=== PATIENT | female | born 1945 | race Caucasian/White ===

== ENCOUNTER 2019-04-08 12:58 | Outpatient (CLI) | payer MEDICARE, SELFPAY ==
[2019-04-08 14:23] LABS: Free T4 Free Thyroxine 1.31 ng/mL (0.78-2.19)
[2019-04-08 15:10] LABS: Thyroid Stimulating Hormone 0.254 uIU/mL (0.465-4.680)
[2019-04-11 07:21] LABS: Triiodothyronine T3 Free 3.5 pg/mL (2.3-4.2)
== END 2019-04-08 12:59 | disposition home or self-care (01) ==
LOC: ANHWCLAB 13:00
PROVIDERS: PCP Internal Medicine; Visit Provider Internal Medicine Endocrinology, Diabetes & Metabolism
DX: E05.90 Thyrotoxicosis, unspecified without thyrotoxic crisis or storm (principal); E04.1 Nontoxic single thyroid nodule; E04.9 Nontoxic goiter, unspecified
CPT/HCPCS: 36415; 84439; 84443; 84481

== ENCOUNTER 2019-05-18 09:55 | Outpatient (CLI) | payer MEDICARE, SELFPAY ==
--- NOTE | ~2019-05-18 | US_ITS ---
EXAMINATION: US thyroid DATE: 05/18/2019 11:14 INDICATION: Nontoxic single thyroid nodule TECHNIQUE: Multiple ultrasound images of the thyroid were obtained. COMPARISON: None. FINDINGS: The right thyroid lobe measures 4.6 x 2.1 x 2.5 cm. The left thyroid lobe measures 6.3 x 3.0 x 4.9 c m. There are several bilateral thyroid nodules. The largest on the left is a wider than tall solid 4 .9 x 4.1 x 3.2 cm heterogeneously isoechoic solid nodule with smooth margins (TI-RADS 4, moderately s uspicious , FNA if >=1.5 cm, annual followup is >1 cm). Along the medial margin of this larger nodule is a second smaller 12 x 9 x 10 mm well-defined solid hypoechoic nodule, also TI-RADS 4. The largest in the right thyroid is a solid hypoechoic well-defined wider than tall TI-RADS 4 nodule measuring 1 .6 x 1.2 x 1.4 cm. There are a few additional smaller solid right thyroid nodules, one with coarse sh adowing calcification, all TI-RADS 4. IMPRESSION: 1. Multiple bilateral TI-RADS 4 thyroid nodules. Recommend ultrasound-guided biopsy of the largest 4. 9 cm left thyroid nodule and consider biopsy for the next largest 1.6 cm right thyroid nodule. Reviewed, dictated and finalized at location A. IMPRESSION: 1. Multiple bilateral TI-RADS 4 thyroid nodules. Recommend ultrasound-guided bi opsy of the largest 4.9 cm left thyroid nodule and consider biopsy for the next largest 1.6 cm right thyroid nodule.
--- NOTE | ~2019-05-18 | DEXA_ITS ---
Bone Density Report Name: Cris Calabrese Age: 74 Sex: Female Ethnicity: White Date of : 1945 Indication: postmenopausal; height loss; prior fracture; hysterectomy; Referring Provider: Sheila Abdalla Study: Bone densitometry was performed. Exam Date: May 18, 2019 Accession number: [id number] Bone Density: Region BMD T-score Z-score Classification AP Spine (L1-L4) 0.820 -2.1 0.3 Osteopenia Femoral Neck (Left) 0.681 -1.5 0.5 Osteopenia Total Hip (Left) 0.789 -1.3 0.5 Osteopenia World Health Organization criteria for BMD impression classify patients as: Normal (T-score at or above -1.0), Osteopenia (T-score between -1.0 and -2.5), or Osteoporosis (T-score at or below -2.5). 10-year Fracture Risk(1): Major Osteoporotic Fracture 17% Hip Fracture 3.0% Reported Risk Factors: [place] (), Neck BMD=0.681, BMI=26.6, previous fracture (1) FRAX(R) Version 3.08. Fracture probability calculated for an untreated patient. Fracture probability may be lower if the patient has received treatment. Clinical Information Provided by Patient: Has had a low trauma fracture Has the following medical conditions: Hysterectomy Patient maximum height was 70 Menopause Age: 44 No regular weight bearing exercise Onset of menses at age 12 Number of children 4 Impression: The patient has low bone mass, based on the Total Spine T-score. The patient has an estimated ten-year risk of hip fracture of 3% and an estimated ten-year risk of major fracture of 17%, based on the WHO FRAX algorithm. The patient has risk factors, including: previous fracture. Discussion: BONE DENSITY IS LOW AT ONE OR MORE SKELETAL SITES. THE PATIENT'S BMD AND CLINICAL RISK FACTORS CONTRIBUTE TO THIS PATIENT'S INCREASED RISK OF FRACTURE. This patient's lowest T-score is low at one or more skeletal sites. It meets the World Health Organization's (WHO) criteria for ?low bone mass? (T-score between -1.0 and -2.5). The patient's 10-year risk of hip fracture as calculated by FRAX exceeds the threshold where pharmacological therapy is recommended by the National Osteoporosis Foundation (NOF). However, all treatment decisions require clinical judgment and consideration of individual patient factors, including patient preferences, comorbidities, previous drug use, risk factors not captured in the FRAX model (e.g., frailty, falls, vitamin D deficiency, increased bone turnover, interval significant decline in bone density) and possible under or overestimation of fracture risk by FRAX. The patient should follow a healthful lifestyle (good nutrition with adequate calcium and vitamin D, and appropriate weight-bearing exercise). Follow-Up: Consider a repeat BMD and Vertebral Fracture Assessment (VFA) exam in 2 years or sooner if medically necessary, to reassess this patient's status. Re
== END 2019-05-18 09:56 | disposition home or self-care (01) ==
LOC: ANHIMG 09:56
PROVIDERS: PCP Internal Medicine; Visit Provider Internal Medicine Endocrinology, Diabetes & Metabolism
DX: E04.2 Nontoxic multinodular goiter (principal); Z78.0 Asymptomatic menopausal state; E05.90 Thyrotoxicosis, unspecified without thyrotoxic crisis or storm; M85.89 Other specified disorders of bone density and structure, multiple sites
CPT/HCPCS: 76536; 77080

== ENCOUNTER 2019-10-18 14:18 | Outpatient (CLI) | payer MEDICARE, SELFPAY ==
--- NOTE | ~2019-10-18 | CT_ITS ---
EXAMINATION: CT abdomen pelvis wo/w con DATE: 10/18/2019 15:17 INDICATION: Disorder of adrenal gland TECHNIQUE: Computed tomography (CT) of the abdomen and pelvis was performed without and with 100 mL O mnipaque-350 intravenous contrast utilizing a standard adrenal protocol. Automated exposure control a nd iterative reconstruction technique were employed. The dose-length product was 871.07 mGy-cm. COMPARISON: None FINDINGS: Mild discoid atelectasis in the lingula and bilateral lower lobes. Heart size is normal. No pericardi al or pleural effusion. Moderate-sized sliding-type hiatal hernia. Liver, gallbladder, spleen, pancre as and bilateral kidneys are normal. Bilateral adrenal adenomas measuring 1.6 x 1.6 cm on the right and 1.7 x 1.3 cm on the left. Both dem onstrate diagnostic low-attenuation measuring 2 on the right and -6 on the left. Attenuation values i ncreased to 97 and 63 respectively on the postcontrast images decreasing to 23 and 9 respectively on the delayed images yielding absolute washout values of 70% on the right and 86% on the left again naga gnostic of adenomas. Moderate amount of stool throughout the colon. Small bowel and appendix are normal. Bladder is normal . The uterus is not identified and has likely been surgically resected. No free intraperitoneal gas o r fluid. No pathologically enlarged abdominal or pelvic lymphadenopathy. Severe lumbar spondylosis. A few small bone islands in the left femoral head and left pelvis. IMPRESSION: 1. Bilateral adrenal adenomas. 2. Moderate-sized sliding-type hiatal hernia. Reviewed, dictated and finalized at location A.
[2019-10-18 15:00] LABS: Estimated Glomerular Filt Rate > 60
== END 2019-10-18 14:19 | disposition home or self-care (01) ==
PROVIDERS: PCP Internal Medicine; Visit Provider Internal Medicine Endocrinology, Diabetes & Metabolism
DX: E27.8 Other specified disorders of adrenal gland (principal); K44.9 Diaphragmatic hernia without obstruction or gangrene; D35.01 Benign neoplasm of right adrenal gland; D35.02 Benign neoplasm of left adrenal gland
CPT/HCPCS: 74178; Q9967

== ENCOUNTER 2020-01-21 01:30 | Outpatient (CLI) | payer MEDICARE, SELFPAY ==
[2020-01-21 18:32] LABS: SARS-CoV-2 RNA PCR Negative
== END 2020-01-21 01:31 | disposition home or self-care (01) ==
LOC: ANHCOVIDDT 01:30
PROVIDERS: PCP Internal Medicine; Visit Provider Internal Medicine Gastroenterology
DX: Z01.812 Encounter for preprocedural laboratory examination (principal); Z20.828 Contact with and (suspected) exposure to other viral communicable diseases
CPT/HCPCS: 87635; C9803; U0003

== ENCOUNTER 2020-01-25 02:50 | Day surgery (SDC) | payer MEDICARE, SELFPAY ==
[2020-01-16 13:58] VITALS: BMI 23.7
[2020-01-25 09:48] VITALS: BP 140/73; PULSE 68; RESP 18; TEMP 36.6
[2020-01-25] MEDS: LACTATED RINGERS 1,000 ML 150 ML IV CONT (10:06)
--- NOTE | 2020-01-25 10:20 | WPDANESEPPF ---
Anes - Initial Pre Proc Eval Procedure: Operation Date: 01/25/20 11:30 Proposed Procedures p Esophagogastroduodenoscopy - Ricky Andrea MD Date/Time: 01/25/20 10:20 Surgeon: Ricky Andrea MD Pre Op Diagnosis: Esophageal Obstruction/Dysphagia/GERD Patient Data Age: 74 Gender: F Height: 5 ft 10 in Weight: 78.4 kg Last Vital Signs Temp 97.9 F 01/25/20 09:48 Pulse 68 01/25/20 09:48 Resp 18 01/25/20 09:48 BP 140/73 01/25/20 09:48 Allergies Allergy/AdvReac Type Severity Reaction Status Date / Time No Known Allergies Allergy Unverified 01/25/20 09:47 Home Medications Medication Instructions Recorded Confirmed Type celecoxib 50 mg capsule 50 mg PO DAILY 03/31/19 01/25/20 History methimazole 5 mg tablet 5 mg PO DAILY #90 tablet 10/26/19 01/25/20 Rx clonazepam 1 mg tablet 1 mg PO BID PRN 30 Days #60 tablet 12/30/19 01/25/20 Rx pantoprazole [Protonix] 40 mg PO QAM 01/16/20 01/25/20 History Patient hx anesthesia problems: none Family hx anesthesia problems: none PMFSH Past Medical History Medical History (Updated 12/29/19 @ 10:05 by Ricky Andrea MD) Dysphagia Family history of colon cancer Schatzki's ring of distal esophagus Shingles Surgical History Surgical History H/O lateral meniscus repair of left knee H/O tubal ligation Family History Family History Other Diabetes mellitus Family history of Alzheimer's disease Family history of coronary artery disease Social History Social History Smoking status: Never smoker Second hand tobacco smoke exposure: Yes Alcohol intake: current Living arrangements: with family Gender identity (if verbalized by the patient): Female Sexual Orientation (if Verbalized by the Patient): Straight or Heterosexual Spiritual care concerns: No Anes - Eval Final PreProcedure Day of Procedure 01/25/20 10:20 Patient weight: normal Heart: regular rate and rhythm Lungs: clear to auscultation Airway: Mallampati scale class II Neurological: alert and oriented Last oral intake: >/= 8 hours ASA classification: II Emergent: no Anesthetic plan: proceed Anesthesia type and monitoring: general GIVS and standard monitoring Informed Consent: The patient's anesthetic plan and its attendant risks and benefits were discussed with the patient/family/POA. Questions were solicited and answers provided to the satisfaction of the patient/family/POA.
--- NOTE | 2020-01-25 10:41 | WPDHPUPDATE1 ---
History and Physical Update Update Date/Time: 01/25/20 10:41 History and Physical has been reviewed, including an updated exam of the patient. There are NO changes in the patient's condition. Risks, benefits, and alternatives have been discussed and questions answered. Patient agrees to proceed with procedure.
[2020-01-25 11:03] VITALS: BP 95/39; PULSE 58; RESP 17; O2SAT 100
[2020-01-25 11:13] VITALS: BP 98/41; PULSE 57; RESP 16; O2SAT 100
[2020-01-25 11:23] VITALS: BP 122/53; PULSE 55; RESP 15; O2SAT 100
== END 2020-01-25 11:55 | disposition home or self-care (01) ==
PROVIDERS: PCP Internal Medicine; Visit Provider Internal Medicine Gastroenterology
PROC: 0DJ08ZZ Inspection of Upper Intestinal Tract, Via Natural or Artificial Opening Endoscopic (ICD-10-PCS; CPT 43235; principal; 2020-01-25 11:30)
DX: K22.2 Esophageal obstruction (principal); K44.9 Diaphragmatic hernia without obstruction or gangrene; K31.7 Polyp of stomach and duodenum; K29.50 Unspecified chronic gastritis without bleeding; Z80.0 Family history of malignant neoplasm of digestive organs
CPT/HCPCS: 43249; 43239; 88305; J2704; J7120

== ENCOUNTER 2020-06-06 15:01 | Outpatient (CLI) | payer MEDICARE, SELFPAY ==
[2020-06-06 16:54] LABS: Free T4 Free Thyroxine 0.98 ng/mL (0.78-2.19)
[2020-06-07 18:20] LABS: Thyroid Stimulating Hormone 0.899 uIU/mL (0.465-4.680)
== END 2020-06-06 15:02 | disposition home or self-care (01) ==
LOC: ANHWCLAB 15:04
PROVIDERS: PCP Internal Medicine; Referring Provider Internal Medicine Endocrinology, Diabetes & Metabolism; Visit Provider Internal Medicine Endocrinology, Diabetes & Metabolism
DX: E04.2 Nontoxic multinodular goiter (principal); M85.80 Other specified disorders of bone density and structure, unspecified site; E27.8 Other specified disorders of adrenal gland; E05.90 Thyrotoxicosis, unspecified without thyrotoxic crisis or storm
CPT/HCPCS: 36415; 84439; 84443

== ENCOUNTER 2020-07-13 15:51 | Outpatient (CLI) | payer MEDICARE, SELFPAY ==
--- NOTE | ~2020-07-13 | XR_ITS ---
EXAMINATION: XR_[id number]_CR INDICATION: Right rib pain, pleurodynia TECHNIQUE: A frontal view of the chest and 3 views of the right ribs were obtained. COMPARISON: None. FINDINGS: There is subsegmental atelectasis in the lower lobes. No focal airspace opacities are ident ified. There is no pleural effusion or pneumothorax. The heart size is normal. There is a moderate-si zed hiatal hernia. IMPRESSION: 1. Mild atelectasis of the lung bases without evidence of displaced rib fracture. Reviewed, dictated and finalized at location A. IMPRESSION: 1. Mild atelectasis of the lung bases without evidence of displaced rib fractur e.
--- NOTE | ~2020-07-13 | XR_ITS ---
EXAMINATION: XR hip RT 2V w AP pelvis INDICATION: Right hip pain TECHNIQUE: AP view of the pelvis and two views of the right hip are obtained. COMPARISON: CT, 10/18/2019 FINDINGS: Bone alignment is normal. There is no fracture. There is mild osteoarthritis of the hips. T he soft tissues are unremarkable. IMPRESSION: 1. Mild osteoarthritis of the hips. Reviewed, dictated and finalized at location A.
--- NOTE | ~2020-07-13 | XR_ITS ---
EXAMINATION:XR_[id number]_CR DATE: 07/13/2020 16:33 INDICATION: Neck pain TECHNIQUE: AP, lateral, and odontoid views of the cervical spine are provided. COMPARISON: None FINDINGS: There are 2 mm of retrolisthesis of C4 on C5 and 2 mm of anterolisthesis of C5 on C6. The o dontoid is intact. No fracture is identified. Vertebral body heights are normal. There is mild loss o f intervertebral disc space height at C4-5 and C5-6. There is moderate multilevel facet osteoarthriti s. The shoulders are slightly rotated to the right. IMPRESSION: 1. Mild cervical spondylosis without acute findings. Reviewed, dictated and finalized at location A.
== END 2020-07-13 15:52 | disposition home or self-care (01) ==
LOC: ANHIMG 15:53
PROVIDERS: PCP Nurse Practitioner Family; Visit Provider Nurse Practitioner Family
DX: M54.2 Cervicalgia (principal); R07.81 Pleurodynia; M25.551 Pain in right hip; J98.11 Atelectasis; M16.0 Bilateral primary osteoarthritis of hip; M47.812 Spondylosis without myelopathy or radiculopathy, cervical region
CPT/HCPCS: 71101; 72040; 73502

== ENCOUNTER 2021-03-19 14:32 | Outpatient (CLI) | payer MEDICARE, SELFPAY ==
[2021-03-19 17:27] LABS: Vitamin D 25 Hydroxy 40.5 ng/mL
[2021-03-19 17:28] LABS: Free T4 Free Thyroxine 1.08 ng/mL (0.78-2.19)
[2021-03-22 05:37] LABS: Triiodothyronine T3 Free 2.8 pg/mL (2.3-4.2)
== END 2021-03-19 14:33 | disposition home or self-care (01) ==
PROVIDERS: PCP Nurse Practitioner Family; Visit Provider Internal Medicine Endocrinology, Diabetes & Metabolism
DX: E27.8 Other specified disorders of adrenal gland (principal); E04.2 Nontoxic multinodular goiter; M85.88 Other specified disorders of bone density and structure, other site
CPT/HCPCS: 36415; 82306; 84439; 84443; 84481

== ENCOUNTER 2021-04-04 12:33 | Outpatient (CLI) | payer MEDICARE, SELFPAY ==
--- NOTE | ~2021-04-04 | MM_ITS ---
EXAMINATION: MM screening sade BI w reina HISTORY: Screening mammogram TECHNIQUE: Craniocaudal and mediolateral oblique 3-D tomosynthesis images were obtained and synthetic 2-D images were generated. CAD analysis was submitted and interpreted. COMPARISON: No prior mammogram is available for comparison at this institution. BREAST PARENCHYMAL COMPOSITION: There are scattered areas of fibroglandular density. FINDINGS: RIGHT BREAST: An asymmetry is present in the middle third of the central breast on the craniocaudal v iew. LEFT BREAST: There are grouped calcifications in the middle third of the upper outer quadrant of the breast. IMPRESSION: 1. Bilateral breast findings as described above which may represent the patient's baseline however no comparison is currently available. 2. Comparison with prior mammograms is necessary. BI-RADS Category 0: Incomplete: Needs comparison with prior mammograms. Reviewed, dictated and finalized at location A. TERM CARE PHLEBOTOMIST IMPRESSION: 1. Bilateral breast findings as described above which may represent the patient 's baseline however no comparison is currently available. 2. Comparison with prior mammograms is necessary. BI-RADS Category 0: Incomplete: Needs comparison with prior mammograms.
== END 2021-04-04 12:34 | disposition home or self-care (01) ==
PROVIDERS: PCP Nurse Practitioner Family; Visit Provider Nurse Practitioner Family
DX: Z12.31 Encounter for screening mammogram for malignant neoplasm of breast (principal); R92.8 Other abnormal and inconclusive findings on diagnostic imaging of breast
CPT/HCPCS: 77063; 77067

== ENCOUNTER 2021-05-01 13:10 | Emergency (ER) | payer MEDICARE, SELFPAY ==
--- NOTE | 2021-05-01 13:22 | ED.GENADULT ---
HPI - General Adult General Chief complaint: Recheck/Abnormal Lab/Rx Stated complaint: elevated blood pressure Time Seen by Provider: 05/01/21 13:20 Mode of arrival: ambulatory Limitations: no limitations History of Present Illness HPI narrative: 76-year-old female presents with concern for elevated blood pressure. She reports 2 nights ago her son took her blood pressure at home and the reading was high, she is not sure what the number was. She reports yesterday while at radiation she had another high blood pressure reading. She denies history of hypertension. She reports slightly she has been very stressed. She also reports she has been doing radiation for skin cancer for last 2 months. She denies headache, weakness in any extremity, numbness in the extremity. She denies any new medications. MD complaint: Elevated blood pressure Related Data Home Medications Medication Instructions Recorded Confirmed duloxetine 30 mg PO DAILY 05/01/21 05/01/21 pantoprazole 40 mg PO DAILY 05/01/21 05/01/21 Allergies Allergy/AdvReac Type Severity Reaction Status Date / Time No Known Allergies Allergy Verified 05/01/21 13:31 Review of Systems Review of Systems: CONSTITUTIONAL: Denies malaise, chills, sweats, or fever. EYES: Denies visual changes, redness, or discharge. ENT: Denies rhinorrhea, congestion, sinus pain, otalgia or sore throat. CARDIOVASCULAR: Denies chest pain, palpitations, or edema. RESPIRATORY: Denies cough or dyspnea. GASTROINTESTINAL: Denies abdominal pain, nausea, vomiting, diarrhea, bloody, or mucous stools. GENITOURINARY: Denies dysuria or hematuria. SKIN: Denies rash or itching. MUSCULOSKELETAL: Denies back pain, joint pain, or myalgia. NEUROLOGIC: Denies numbness, weakness, or headache. PSYCHIATRIC: Denies anxiety or depression. All systems reviewed & are unremarkable except as noted in HPI and below [facility] Past Medical History Medical History (Updated 05/01/21 @ 13:49 by Kitty Quinones NP) Abnormal mammogram Actinic keratosis, hx of Acute right hip pain Anxiety Anxiety BMI 25.0-25.9,adult Breast cancer screening Cervicalgia Colon cancer screening Depression Dysphagia Family history of colon cancer brother, next colonoscopy 03/2022 Fatigue GERD (gastroesophageal reflux disease) Left knee pain Lesion of lip Lumbago Microscopic hematuria Rib pain on right side Schatzki's ring of distal esophagus Shingles Vitamin D deficiency Wellness examination Surgical History Surgical History H/O lateral meniscus repair of left knee H/O tubal ligation History of hysterectomy Hx of goiter removal Family History Family History Father Hypertension Heart disease Sibling Carcinoma of colon Lung cancer Other Diabetes mellitus Family history of Alzheimer's disease Family history of coronary artery disease Social History Social History Smoking status: Never smoker Second hand tobacco smoke exposure: Yes Alcohol intake: current Substance use: never Gender identity (if verbalized by the patient): Female Sexual Orientation (if Verbalized by the Patient): Straight or Heterosexual Spiritual care concerns: No Comments At time of signature, agree with nursing past medical, surgical, social and family history. There is no relevant family history pertinent to the presenting complaint Exam Narrative: GENERAL: Well-appearing, well-nourished, and in no acute distress. HEAD: Normocephalic, atraumatic. EYES: PERRLA, sclera clear, and EOMI. No nystagmus. ENT: Nares clear. Mucous membranes moist. NECK: Supple. No lymphadenopathy. No jugular venous distension, thyromegaly, or carotid bruits. Carotids were easily palpable bilaterally. CHEST: No respiratory distress. Clear to auscultation. No bony deformities, no as
[2021-05-01 13:24] VITALS: BP 167/78; PULSE 72; RESP 18; TEMP 37.1; O2SAT 100
== END 2021-05-01 13:52 | disposition home or self-care (01) ==
PROVIDERS: Emergency Provider Nurse Practitioner; PCP Family Medicine
DX: R03.0 Elevated blood-pressure reading, without diagnosis of hypertension (principal); K21.9 Gastro-esophageal reflux disease without esophagitis
CPT/HCPCS: 99211; G0463

== ENCOUNTER 2021-08-16 12:22 | Outpatient (CLI) | payer MEDICARE, SELFPAY ==
--- NOTE | ~2021-08-16 | MMUS_ITS ---
EXAMINATION: MM diagnostic sade BI w reina, US breast BI complete HISTORY: Right breast asymmetry in middle third of central breast on craniocaudal screening view of F ebruary 2021 and grouped calcifications in the middle third of the upper outer quadrant of the le ft breast on same date mammogram TECHNIQUE: Additional 3-D tomosynthesis images of both breasts were performed and synthetic 2-D image s were generated. Magnification views of left breast in ML, MLO and CC projections. CAD analysis was submitted and interpreted. High resolution bilateral complete breast ultrasound including all 4 quadr ants and subareolar areas was performed. COMPARISON: April 04, 2021 bilateral screening mammogram BREAST PARENCHYMAL COMPOSITION: The breasts are heterogeneously dense, which may obscure small masses . FINDINGS: MAMMOGRAPHIC FINDINGS: Right breast: No reproducible mass is evident. No architectural distortion is detected. The asymmetry reported in the middle third of the central breast on screening craniocaudal view of April 04 22 compresses out. Left breast: Multiple benign calcifications are noted. ULTRASOUND: No suspicious mass or shadowing or other significant sonographic finding of either breast is noted. IMPRESSION: 1. No mammographic evidence of malignancy 2. Routine annual mammographic screening is recommended BI-RADS Category 2: Benign finding(s). Reviewed, dictated and finalized at location A. IMPRESSION: 1. No mammographic evidence of malignancy 2. Routine annual mammographic screening is recommended BI-RADS Category 2: Benign finding(s).
[2021-08-16 16:36] LABS: Free T4 Free Thyroxine 1.18 ng/mL (0.78-2.19)
[2021-08-19 14:02] LABS: Triiodothyronine T3 Free 3.1 pg/mL (2.3-4.2)
== END 2021-08-16 12:23 | disposition home or self-care (01) ==
LOC: ANHIMG 12:24
PROVIDERS: Internal Medicine Endocrinology, Diabetes & Metabolism; PCP Nurse Practitioner Family; Visit Provider Nurse Practitioner Family
DX: E04.2 Nontoxic multinodular goiter (principal); E05.90 Thyrotoxicosis, unspecified without thyrotoxic crisis or storm; E27.8 Other specified disorders of adrenal gland; R92.8 Other abnormal and inconclusive findings on diagnostic imaging of breast
CPT/HCPCS: 36415; 76641; 77062; 77066; 84439; 84443; 84481; G0279

== ENCOUNTER 2022-07-11 11:06 | Observation (INO) | payer MEDICARE, SELFPAY ==
[2022-07-11] VITALS (15 sets, daily range): BP systolic 119–159; BP diastolic 48–75; PULSE 55–72; RESP 13–21; TEMP 36.2–36.4; O2SAT 96–100; BMI 20.8
--- NOTE | ~2022-07-11 | XR_ITS ---
EXAMINATION: XR chest 2V DATE: 07/11/2022 12:21 INDICATION: Weakness. TECHNIQUE: Frontal and lateral views of the chest were obtained. COMPARISON: Left wrist radiographs 05/19/2017, CT abdomen and pelvis 10/18/2019 FINDINGS: There is mild atelectasis in the lower lung zones. No pleural effusion or pneumothorax. The heart size is normal. There is a small hiatal hernia. There is mild chronic anterior wedging of mult iple midthoracic vertebral bodies. IMPRESSION: 1. Mild atelectasis in the lower lung zones. 2. Small hiatal hernia. Reviewed, dictated and finalized at location A.
--- NOTE | ~2022-07-11 | CT_ITS ---
EXAMINATION: CT brain wo con INDICATION: Increasing confusion COMPARISON: None TECHNIQUE: Standard unenhanced head CT. The dose-length product (DLP) was 681.00 mGy-cm. The mA was a djusted according to patient size. Iterative reconstruction technique was employed. FINDINGS: There is no acute intraparenchymal hemorrhage. No evidence of mass lesion. No evidence of a cute infarction. There is mild periventricular and subcortical hypodensity probably related to small vessel ischemic disease. There is mild prominence of the sulci and ventricles related to cerebral atr ophy. Intracranial calcified cerebral atherosclerosis is noted. There are no extra-axial collections. There is no mass effect or midline shift. Polyps or mucous retention cysts are noted in the left max illary sinus. The visualized sinuses and mastoid air cells are well aerated. IMPRESSION: 1. No acute intracranial abnormality. 2. Age related findings. Reviewed, dictated and finalized at location A.
--- NOTE | 2022-07-11 11:12 | ECG_ITS ---
Measurements Intervals [place] Rate: 63 P: 54 [place]: 193 QRS: -52 QRSD: 125 T: -10 QT: 410 QTc: 421 Interpretive Statements SINUS RHYTHM RIGHT BUNDLE BRANCH BLOCK LEFT ANTERIOR FASCICULAR BLOCK LEFT VENTRICULAR HYPERTROPHY ANTEROSEPTAL INFARCT, AGE INDETERMINATE BORDERLINE T WAVE ABNORMALITY- INFERIOR LEADS BASELINE ARTIFACT- I, II, III, AVR, AVL, AVF, V1-V3 ABNORMAL ECG NO PREVIOUS ECG AVAILABLE FOR COMPARISON Electronically Signed On 07-11-2022 11:51:21 CDT by Varinder Bloom D.O.
[2022-07-11 11:32] LABS: Basophils Percent Auto 0.3 % (0.2-1.2); Eosinophils Absolute Auto 0.1 K/mm3 (0-0.3); Eosinophils Percent Auto 1.5 % (0-4.4); Hematocrit 41.3 % (37.0-47.0); Hemoglobin 13.6 g/dL (12.0-15.0); Immature Granulocyte Absolute 0.06 K/mm3 (0.00-0.031); Immature Granulocyte Percent A 0.8 % (0-0.5); Lymphocytes Absolute Auto 1.24 K/mm3 (0.9-3.2); Lymphocytes Percent Auto 16.8 % (18.3-44.2); Mean Corpuscular HGB Conc 32.9 g/dl (32-36); Mean Corpuscular Hemoglobin 29.6 pg (26-34); Mean Corpuscular Volume 89.8 fl (80-100); Mean Platelet Volume 8.9 fl (7.4-10.4); Monocytes Absolute Auto 0.5 K/mm3 (0.1-0.6); Monocytes Percent Auto 6.4 % (2.6-8.5); Neutrophils Absolute Auto 5.5 K/mm3 (1.3-6.7); Neutrophils Percent Auto 74.2 % (45.5-73.1); Platelet Count Result 309 k/mm3 (150-375); Red Cell Distribution Width 13.4 % (11.5-14.5); White Blood Count 7.4 K/mm3 (4.5-10.0)
[2022-07-11 11:39] LABS: Alanine Aminotransferase 23 U/L (6-35); Albumin Level 4.4 g/dL (3.5-5.1); Alkaline Phosphatase 144 U/L (38-126); Anion Gap 9 mmol/L (8-16); Aspartate Amino Transferase 25 U/L (14-36); Bilirubin,Total 0.7 mg/dL (0.2-1.3); Blood Urea Nitrogen 19 mg/dL (7-17); Carbon Dioxide 33 mmol/L (22-30); Chloride 97 mmol/L (98-107); Estimated CRCL calculation 58 ml/min; Estimated Glomerular Filt Rate > 60; Glucose 113 mg/dL (65-110); Potassium 3.3 mmol/L (3.4-5.0); Sodium 139 mmol/L (137-145)
[2022-07-11 12:18] LABS: Appearance Urine Slightly Cloudy (Clear); Bilirubin Urine 1+ (Negative); Blood Urine Trace-intact (Negative); Color Urine Yellow (Yellow); Glucose Urine UA Negative (Negative); Ketones Urine Negative (Negative); Leukocyte Esterase Ur 3+ LEU/UL (Negative); Nitrate Urine Positive (Negative); Protein Urine 1+ mg/dL (Negative)
[2022-07-11 12:36] LABS: Bacteria Urine Rare /hpf; Need Manual Microscopic Reviewed; Squamous Epithelial Cell Urine Many /hpf (Few); WBC Urine >100 /hpf
[2022-07-11 12:40] LABS: Add Urine Microscopic? YES
--- NOTE | 2022-07-11 14:45 | ED.GENADULT ---
HPI - General Adult General Chief complaint: Weakness Stated complaint: UTI-abx not working Time Seen by Provider: 07/11/22 12:09 Source: patient Mode of arrival: EMS Limitations: no limitations History of Present Illness HPI narrative: 77-year-old with a history of anxiety, depression , hypertension, chronic fatigue was sent from retirement with complaints of marked weakness as per the retirement records and from the family patient was seen at [facility] few days ago was diagnosed with UTI. Patient presently has no fever, chest pain or shortness of breath here with complaints of marked weakness. Onset (ago): week(s) (1) Severity: moderate Relieving factors: none Exacerbating factors: none Associated symptoms: denies other symptoms Treatments prior to arrival: none Related Data Home Medications Medication Instructions Recorded Confirmed risperidone 0.25 mg tablet 0.25 mg PO QHS 06/09/22 06/19/22 ondansetron HCl 4 mg tablet 4 mg PO Q8H PRN 06/19/22 06/19/22 Allergies Allergy/AdvReac Type Severity Reaction Status Date / Time No Known Allergies Allergy Verified 07/11/22 11:06 Review of Systems Constitutional: Constitutional: Reports no additional constitutional complaints Eyes: Eyes: Reports no additional eye complaints ENT: Reports system reviewed and no additional complaints, except as documented Cardiovascular: Cardiovascular: Reports no additional cardiovascular complaints Respiratory: Respiratory: Reports no additional respiratory complaints Gastrointestinal: Gastrointestinal: Reports no additional gastrointestinal complaints Genitourinary: Genitourinary: Reports no additional female genitourinary complaints Musculoskeletal: Musculoskeletal: Reports no additional musculoskeletal complaints [facility] Past Medical History Medical History Abnormal mammogram Actinic keratosis, hx of Acute right hip pain Anxiety Anxiety BMI 25.0-25.9,adult Breast cancer screening Cervicalgia Colon cancer screening Constipation Depression Drooling Dysphagia Essential hypertension (~04/2021) Family history of colon cancer brother, next colonoscopy 03/2022 Fatigue GERD (gastroesophageal reflux disease) Left knee pain Lesion of lip Lumbago Microscopic hematuria Pubic ramus fracture Rib pain on right side Schatzki's ring of distal esophagus Shingles UTI (urinary tract infection) Vitamin D deficiency Wellness examination Surgical History Surgical History H/O lateral meniscus repair of left knee H/O tubal ligation History of hysterectomy Hx of goiter removal Family History Family History Father Hypertension Heart disease Sibling Carcinoma of colon Lung cancer Other Diabetes mellitus Family history of Alzheimer's disease Family history of coronary artery disease Social History Social History Smoking status: Never smoker Second hand tobacco smoke exposure: Yes Alcohol intake: former Substance use: never Lack of Transportation: No Lack of Food: Never True Current Housing: I Have Housing Concerned About Future Housing: No Difficulty Paying Gas/Electric Bills: No Difficulty Paying for Meds: No Currently Unemployed: No Education: Decline to Answer Difficulty w/ Childcare or Family Care: No Living arrangements: with family Gender identity (if verbalized by the patient): Female Sexual Orientation (if Verbalized by the Patient): Straight or Heterosexual Spiritual care concerns: No Exam Narrative: GENERAL: Thin and frail, and in no acute distress. HEAD: Normocephalic, atraumatic. EYES: PERRLA and EOMI.. NECK: Supple. CHEST: Clear to auscultation. No respiratory distress. HEART: Regular rate and rhythm. No murmur heard. Normal peripheral
--- NOTE | 2022-07-11 15:44 | PM.IMHP ---
H&P: HPI History of Present Illness Date/Time: 07/11/22 18:00 Chief Complaint: Weakness. Narrative: This is a 77-year-old female with dementia, anxiety, depression, hypertension, and GERD who presented to the emergency department via EMS from [facility] in [place] for evaluation of weakness. Patient provides the following history; her daughter provides additional information with the patient's permission. She was seen in the ED at [facility] in [place] 2 days ago on 07/09/2022 for evaluation of urinary frequency and follow smelling urine. After staff noticed foul-smelling urine and increasing urination. UA was suggestive of UTI and she was discharged home on cephalexin. The patient continues to feel weak and her daughter does not think she is getting any better with antibiotics. Staff at her facility also believe she seems a bit more confused than usual. She was thus brought back in for evaluation. In the ED: She was afebrile on arrival with stable vital signs. Pertinent labs include a WBC count of 7.4, hemoglobin 13.6, sodium 139, potassium 3.3, BUN 19, creatinine 0.70. UA was positive for nitrates, 3+ leukocyte esterase, 3 to 5 RBC, greater than 100 WBC, rare bacteria, many squamous epithelial cells, and 11 to 20 casts. [facility] Past Medical History Medical History (Updated 07/12/22 @ 00:27 by Liz Kahn PA-C) Anxiety Constipation Dementia Depression Essential hypertension Gastroesophageal reflux disease Osteopenia Pubic ramus fracture Schatzki's ring of distal esophagus Shingles Vitamin D deficiency Surgical History Surgical History (Updated 07/12/22 @ 00:20 by Liz Kahn PA-C) History of arthroplasty of right knee History of bladder suspension procedure History of hysterectomy History of lateral meniscus repair of left knee History of partial thyroidectomy Removal of goiter. History of tubal ligation Family History Family History Father Hypertension Heart disease Sibling Carcinoma of colon Lung cancer Other Diabetes mellitus Family history of Alzheimer's disease Family history of coronary artery disease Social History Social History (Updated 07/12/22 @ 00:21 by Liz Kahn PA-C) Social History: Surrogate medical decision maker: Brooklyn Marroquin, daughter. Code status: Full code. Smoking status: Never smoker Second hand tobacco smoke exposure: Yes Alcohol intake: unknown Substance use: unknown Substance use type: unknown Lack of Transportation: No Lack of Food: Never True Current Housing: I Have Housing Concerned About Future Housing: No Difficulty Paying Gas/Electric Bills: No Difficulty Paying for Meds: No Currently Unemployed: No Education: Decline to Answer Difficulty w/ Childcare or Family Care: No Additional living arrangements comments: [facility] in [place]. Additional occupation/education comments: Retired [employer]. Spiritual care concerns: No Meds Home Medications and Allergies Home Medications Medication Instructions Recorded Confirmed Type metoprolol succinate 50 mg 50 mg PO DAILY #45 tabs 06/09/22 07/11/22 Rx tablet,extended release 24 hr pantoprazole 40 mg tablet,delayed 40 mg PO QAM #90 tabs 06/09/22 07/11/22 Rx release risperidone 0.25 mg tablet 0.25 mg PO QHS 06/09/22 07/11/22 History duloxetine 60 mg capsule,delayed 60 mg PO DAILY #90 caps 06/19/22 07/11/22 Rx release (Cymbalta) ondansetron HCl 4 mg tablet 4 mg PO Q8H PRN Nausea 06/19/22 07/11/22 History sennosides 8.6 mg-docusate sodium 1 tab-cap PO BID #180 tabs 06/19/22 07/11/22 Rx 50 mg tablet (Senna Plus) acetaminophen 500 mg tablet 500 mg PO Q6H PRN pain #100 tabs 07/01/22 07/11/22 Rx Allergies Allergy/AdvReac Type Severity Reaction Status Date / Time No Known Allergies Allergy Verified 07/11/22 17:30 Vital Signs Vital Signs - 24 hr 07/11/22 11:08 07/11/22
[2022-07-11] MEDS: SODIUM CHLORIDE 0.9% IV 1,000 ML 125 ML IV CONT ×2 (16:42→18:07)
--- NOTE | 2022-07-11 17:30 | ADMGEN ---
This patient, Cris Calabrese, was admitted to Medical Room 253-01. Patient/family oriented to hospital policies and general routines including ID bracelet, bed and alarms, visiting hours, pain management, procedures, bathroom and other care routines, personal items, smoking policy, room service/diet, and visiting hours. Information on how to activate the Rapid Response Team has been discussed. Patient/Family are encouraged to report perceived risks to care and to ask questions if they do not understand what they are told or what they should do.
[2022-07-12] MEDS: POTASSIUM CHLORIDE 20 MEQ TABLET PO (00:55)
[2022-07-12] MEDS: risperiDONE 0.25 MG TABLET PO ×2 (00:55→20:43)
[2022-07-12 05:22] VITALS: BP 118/56; PULSE 70; RESP 16; TEMP 36.8; O2SAT 96
[2022-07-12 07:05] LABS: Anion Gap 4 mmol/L (8-16); Blood Urea Nitrogen 16 mg/dL (7-17); Calcium 8.3 mg/dL (8.4-10.2); Carbon Dioxide 31 mmol/L (22-30); Chloride 105 mmol/L (98-107); Estimated CRCL calculation 72 ml/min; Estimated Glomerular Filt Rate > 60; Glucose 95 mg/dL (65-110); Magnesium 1.8 mg/dL (1.6-2.3); Potassium 3.4 mmol/L (3.4-5.0); Sodium 140 mmol/L (137-145)
[2022-07-12 07:15] LABS: Basophils Percent Auto 0.8 % (0.2-1.2); Eosinophils Absolute Auto 0.2 K/mm3 (0-0.3); Eosinophils Percent Auto 3.9 % (0-4.4); Hematocrit 34.7 % (37.0-47.0); Hemoglobin 11.5 g/dL (12.0-15.0); Immature Granulocyte Absolute 0.05 K/mm3 (0.00-0.031); Lymphocytes Absolute Auto 1.26 K/mm3 (0.9-3.2); Lymphocytes Percent Auto 24.6 % (18.3-44.2); Mean Corpuscular HGB Conc 33.1 g/dl (32-36); Mean Corpuscular Hemoglobin 29.6 pg (26-34); Mean Corpuscular Volume 89.2 fl (80-100); Mean Platelet Volume 9.5 fl (7.4-10.4); Monocytes Absolute Auto 0.4 K/mm3 (0.1-0.6); Monocytes Percent Auto 8.6 % (2.6-8.5); Neutrophils Absolute Auto 3.1 K/mm3 (1.3-6.7); Neutrophils Percent Auto 61.1 % (45.5-73.1); Platelet Count Result 253 k/mm3 (150-375); Red Blood Count 3.89 M/mm3 (4.2-5.4); Red Cell Distribution Width 13.3 % (11.5-14.5); White Blood Count 5.1 K/mm3 (4.5-10.0)
[2022-07-12] MEDS: SENNA/DOCUSATE SODIUM TABLET 1 TAB PO ×2 (08:17→18:02)
[2022-07-12] MEDS: PANTOPRAZOLE 40 MG TABLET PO (08:17)
[2022-07-12] MEDS: DULoxetine HCL 60 MG CAPSULE.DR PO (08:17)
[2022-07-12 08:20] VITALS: BP 127/54; PULSE 71; RESP 14; O2SAT 98
[2022-07-12 08:31] VITALS: PULSE 71
[2022-07-12] MEDS: METOPROLOL SUCCINATE EXT REL 50 MG TABCR PO (08:31)
--- NOTE | 2022-07-12 09:45 | PM.IMPN ---
Progress Note: A&P Assessment and Plan (1) Urinary tract infection: Code(s): N39.0 - Urinary tract infection, site not specified Status: Acute Assessment and Plan: Continue ceftriaxone. Urine culture results from recent visit to [facility] has been requested. (2) Generalized weakness: Code(s): R53.1 - Weakness Status: Acute Assessment and Plan: Presumably secondary to UTI and mild dehydration. PT/OT consulted. (3) Dementia: Code(s): F03.90 - Unspecified dementia, unspecified severity, without behavioral disturbance, psychotic disturbance, mood disturbance, and anxiety Status: Acute Assessment and Plan: She has reportedly been increasingly confused last several days, likely due to infection. Brain CT ordered to rule out acute pathology. (4) Essential hypertension: Code(s): I10 - Essential (primary) hypertension Status: Acute Assessment and Plan: Blood pressures were reviewed and they have been stable. Antihypertensives will be reviewed and resumed as appropriate. (5) Gastroesophageal reflux disease: Code(s): K21.9 - Gastro-esophageal reflux disease without esophagitis Status: Acute Assessment and Plan: Continue pantoprazole. (6) Depression with anxiety: Code(s): F41.8 - Other specified anxiety disorders Status: Acute Assessment and Plan: Continue Risperdal and duloxetine. (7) Hypokalemia: Code(s): E87.6 - Hypokalemia Status: Acute Assessment and Plan: Potassium will be replaced and monitored. Subjective Date/time seen: 07/12/22 09:45 Interval history: No complaints Exam Narrative: General: Thin, frail elderly female in the semi-Up position in bed. Weight: 65.8 kg. BMI: 20.8. HEENT: Normocephalic, atraumatic. PERRL, EOMI. Sclera anicteric. Tacky mucous membranes. Neck: Supple. No nuchal rigidity. No obvious thyromegaly. Respiratory: Lungs are clear to auscultation bilaterally. Cardiovascular: Regular rate and rhythm with S1-S2. Gastrointestinal: Abdomen is soft, nontender, and nondistended with positive bowel sounds. Skin: Warm and dry. Extremities: No cyanosis or clubbing. 1+ pitting edema to shins. No palpable knots or cords. Equivocal Homans sign bilaterally. radial and pedal pulses intact. Neurological: Alert to name, date of , and president. She is unaware that she is in the hospital and she tells me that she is in the kitchen area. She tells me that she is 10 years old. Cranial nerves 2-12 are grossly intact. Speech is clear. No obvious facial asymmetry. Hand protective services officer and foot pushes are weak but equal bilaterally. She does not participate in the rest of the neurologic exam. Psychiatric: Somnolent but arousable. She answers questions but does not always follow commands. She is confused and is not a reliable historian. Objective Data Vital Signs Vital Signs: Vital Signs - 24 hr 07/11/22 11:08 07/11/22 12:07 07/11/22 13:23 Temperature 97.2 F L Pulse Rate 60 66 67 Respiratory Rate 20 21 H 14 Blood Pressure 142/56 H 128/65 146/67 H Pulse Oximetry 100 98 98 Oxygen Delivery Room Air 07/11/22 13:32 07/11/22 13:47 07/11/22 14:01 Temperature Pulse Rate 57 L 58 L 62 Respiratory Rate 16 15 19 Blood Pressure 136/66 123/62 122/75 Pulse Oximetry 97 96 Oxygen Delivery 07/11/22 14:17 07/11/22 14:32 07/11/22 14:47 Temperature Pulse Rate 59 L 67 72 Respiratory Rate 13 17 19 Blood Pressure 130/61 142/64 H 134/70 Pulse Oximetry 96 96 96 Oxygen Delivery 07/11/22 15:00 07/11/22 16:00 07/11/22 16:45 Temperature Pulse Rate 56 L 71 66 Respiratory Rate 15 15 18 Blood Pressure 138/60 125/57 L 127/65 Pulse Oximetry 100 98 98 Oxygen Delivery 07/11/22 17:30 07/11/22 20:16 07/11/22 20:00 Temperature 97.6 F 97.6 F Pulse Rate 66 55 L 55 L Respiratory Rate 16 16 16 Blood Pressure 159/66 H 119/48
[2022-07-12 14:55] VITALS: BP 154/75; PULSE 76; RESP 14; TEMP 36.4; O2SAT 99
[2022-07-12 20:00] VITALS: PULSE 78; RESP 16; O2SAT 95
[2022-07-12 20:19] VITALS: BP 118/57; PULSE 78; RESP 16; TEMP 37.2; O2SAT 95
[2022-07-13 05:52] VITALS: BP 134/70; PULSE 69; RESP 14; TEMP 36.6; O2SAT 98
[2022-07-13 08:00] VITALS: O2SAT 98
[2022-07-13 08:05] VITALS: PULSE 66
[2022-07-13] MEDS: PANTOPRAZOLE 40 MG TABLET PO (08:05)
[2022-07-13] MEDS: SENNA/DOCUSATE SODIUM TABLET 1 TAB PO (08:05)
[2022-07-13] MEDS: DULoxetine HCL 60 MG CAPSULE.DR PO (08:05)
[2022-07-13] MEDS: METOPROLOL SUCCINATE EXT REL 50 MG TABCR PO (08:05)
[2022-07-13 08:25] VITALS: O2SAT 98
--- NOTE | 2022-07-13 10:49 | PM.DS ---
DS: Admitting Diagnosis Discharge Date July 13, 2022 Admitting Diagnosis UTI DS: Discharge Diagnosis Discharge Diagnosis (1) Urinary tract infection: Code(s): N39.0 - Urinary tract infection, site not specified Status: Acute Assessment and Plan: Continue ceftriaxone. Urine culture results from recent visit to [facility] has been requested. (2) Generalized weakness: Code(s): R53.1 - Weakness Status: Acute Assessment and Plan: Presumably secondary to UTI and mild dehydration. PT/OT consulted. (3) Dementia: Code(s): F03.90 - Unspecified dementia, unspecified severity, without behavioral disturbance, psychotic disturbance, mood disturbance, and anxiety Status: Acute Assessment and Plan: She has reportedly been increasingly confused last several days, likely due to infection. Brain CT ordered to rule out acute pathology. (4) Essential hypertension: Code(s): I10 - Essential (primary) hypertension Status: Acute Assessment and Plan: Blood pressures were reviewed and they have been stable. Antihypertensives will be reviewed and resumed as appropriate. (5) Gastroesophageal reflux disease: Code(s): K21.9 - Gastro-esophageal reflux disease without esophagitis Status: Acute Assessment and Plan: Continue pantoprazole. (6) Depression with anxiety: Code(s): F41.8 - Other specified anxiety disorders Status: Acute Assessment and Plan: Continue Risperdal and duloxetine. (7) Hypokalemia: Code(s): E87.6 - Hypokalemia Status: Acute Assessment and Plan: Potassium will be replaced and monitored. DS: Summary Hospital Course Hospital Course: admitted for UTI, antibiotics on discharge. Time Spent with Patient Time attestation: Total time spent providing and/or coordinating discharge services: Exam Narrative: General: Thin, frail elderly female in the semi-Up position in bed. Weight: 65.8 kg. BMI: 20.8. HEENT: Normocephalic, atraumatic. PERRL, EOMI. Sclera anicteric. Tacky mucous membranes. Neck: Supple. No nuchal rigidity. No obvious thyromegaly. Respiratory: Lungs are clear to auscultation bilaterally. Cardiovascular: Regular rate and rhythm with S1-S2. Gastrointestinal: Abdomen is soft, nontender, and nondistended with positive bowel sounds. Skin: Warm and dry. Extremities: No cyanosis or clubbing. 1+ pitting edema to shins. No palpable knots or cords. Equivocal Homans sign bilaterally. radial and pedal pulses intact. Neurological: Alert to name, date of , and president. She is unaware that she is in the hospital and she tells me that she is in the kitchen area. She tells me that she is 10 years old. Cranial nerves 2-12 are grossly intact. Speech is clear. No obvious facial asymmetry. Hand political science professor and foot pushes are weak but equal bilaterally. She does not participate in the rest of the neurologic exam. Psychiatric: Somnolent but arousable. She answers questions but does not always follow commands. She is confused and is not a reliable historian. Discharge Plan Discharge Attending physician on discharge: Pete Maza Discharging Clinician: Pete Maza Patient Disposition: Home, Self-Care Activity: as tolerated Diet: as tolerated Patient Instructions: Antibiotic Form Stand Alone Forms: General Discharge Information Follow-up/Referrals: Susan White, [facility] [employer] [Primary Care Provider] - Discharge Medications: New cefdinir 300 mg capsule 300 mg PO Q12H Qty: 10 0RF Continued duloxetine [Cymbalta] 60 mg capsule,delayed release(DR/EC) 60 mg PO DAILY Qty: 90 3RF sennosides-docusate sodium [Senna Plus] 8.6-50 mg tablet 1 tab-cap PO BID Qty: 180 3RF ondansetron HCl 4 mg tablet 4 mg PO Q8H PRN (Reason: Nausea) metoprolol succinate 50 mg tablet extended release 24 hr 50 mg PO DAILY Qty: 45 11RF
[2022-07-13 14:00] VITALS: BP 136/70; PULSE 86; RESP 18; TEMP 36.6; O2SAT 95
== END 2022-07-13 15:39 | disposition home or self-care (01) ==
LOC: ANHED 15:20 → ANH2MED 07-13 10:49
PROVIDERS: Emergency Medicine; Physician Assistant; Admitting Provider Student in an Organized Health Care Education/Training Program; Emergency Provider Family Medicine; PCP Nurse Practitioner Family; Visit Provider Chiropractor
DX: N39.0 Urinary tract infection, site not specified (principal); R53.1 Weakness; I10 Essential (primary) hypertension; K21.9 Gastro-esophageal reflux disease without esophagitis; F03.90 Unspecified dementia, unspecified severity, without behavioral disturbance, psychotic disturbance, mood disturbance, and anxiety; F41.8 Other specified anxiety disorders; E87.6 Hypokalemia; I45.2 Bifascicular block; R94.31 Abnormal electrocardiogram [ECG] [EKG]; J98.11 Atelectasis; R53.83 Other fatigue; K44.9 Diaphragmatic hernia without obstruction or gangrene; D64.9 Anemia, unspecified; E55.9 Vitamin D deficiency, unspecified; Z79.899 Other long term (current) drug therapy; Z82.49 Family history of ischemic heart disease and other diseases of the circulatory system
CPT/HCPCS: 36415; 70450; 71046; 80048; 80053; 81001; 83735; 84443; 85025; 87086; 93005; 96361; 96365; 96366; 97162; 97165; 99285; A9270; G0378; J0696; J7030

== ENCOUNTER 2022-08-01 23:48 | Observation (INO) | payer MEDICARE, SELFPAY ==
--- NOTE | ~2022-08-01 | XR_ITS ---
XR chest 1V portable 08/02/2022 00:17 Indication: Weakness Procedure: AP portable chest Comparison: 07/11/2022 Findings: Borderline heart size. Small hiatal hernia. No focal air space disease, pulmonary edema, pl eural effusion or suspected pneumothorax. The lungs are hyperinflated which is consistent with, but n ot diagnostic of chronic obstructive pulmonary disease. Impression: 1: No acute cardiopulmonary disease. Reviewed, dictated and finalized at location A. Impression: 1: No acute cardiopulmonary disease.
--- NOTE | ~2022-08-01 | CT_ITS ---
EXAMINATION: CT brain wo con DATE: 08/02/2022 00:35 INDICATION: Altered mental status TECHNIQUE: Computed tomography (CT) of the head was performed without intravenous contrast. The dose- length product was 749.27 mGy-cm. Automated exposure control and iterative reconstruction technique w ere employed. COMPARISON: CT dated 07/12/2022 FINDINGS: Mild generalized brain parenchymal volume loss. There are scattered mild periventricular an d subcortical white matter changes, most likely related to small vessel ischemic disease (microangiop athy). No acute intracranial hemorrhage, infarction, mass or mass effect. IMPRESSION: 1. No acute intracranial abnormality. Reviewed, dictated and finalized at location A.
[2022-08-01 23:51] VITALS: BP 143/80; PULSE 69; RESP 19; TEMP 36.6
[2022-08-02] VITALS (10 sets, daily range): BP systolic 118–156; BP diastolic 64–89; PULSE 63–86; RESP 12–20; TEMP 36.6–36.7; O2SAT 97–99
--- NOTE | 2022-08-02 | ECG_ITS ---
Measurements Intervals [place] Rate: 58 P: 37 WA: 203 QRS: -55 QRSD: 135 T: -30 QT: 446 QTc: 441 Interpretive Statements SINUS BRADYCARDIA RIGHT BUNDLE BRANCH BLOCK [120+ ms QRS DURATION, UPRIGHT V1, 40+ ms S IN I/aVL/V4/V5/V6] LEFT ANTERIOR FASCICULAR BLOCK [QRS AXIS <= -45, QR IN I, RS IN II] VOLTAGE CRITERIA FOR LVH [MEETS CRITERIA IN ONE OF: R(aVL), S(V1), R(V5), R(V5/V6)+S(V1)] POSSIBLE SEPTAL MYOCARDIAL INFARCTION , OF INDETERMINATE AGE [30 ms Q WAVE IN V1/V2] COMPARED TO ECG 07/11/2022 11:15:39 SINUS BRADYCARDIA NOW PRESENT Electronically Signed On 08-02-2022 9:01:36 CDT by Mary Camarillo M.D.
[2022-08-02 00:25] LABS: Basophils Percent Auto 0.5 % (0.2-1.2); Eosinophils Absolute Auto 0.1 K/mm3 (0-0.3); Eosinophils Percent Auto 0.7 % (0-4.4); Hemoglobin 12.2 g/dL (12.0-15.0); Immature Granulocyte Absolute 0.05 K/mm3 (0.00-0.031); Immature Granulocyte Percent A 0.6 % (0-0.5); Lymphocytes Absolute Auto 0.68 K/mm3 (0.9-3.2); Lymphocytes Percent Auto 7.7 % (18.3-44.2); Mean Corpuscular HGB Conc 32.1 g/dl (32-36); Mean Corpuscular Hemoglobin 28.6 pg (26-34); Mean Corpuscular Volume 89.2 fl (80-100); Mean Platelet Volume 9.1 fl (7.4-10.4); Monocytes Absolute Auto 0.4 K/mm3 (0.1-0.6); Neutrophils Absolute Auto 7.5 K/mm3 (1.3-6.7); Neutrophils Percent Auto 85.5 % (45.5-73.1); Platelet Count Result 261 k/mm3 (150-375); Red Blood Count 4.26 M/mm3 (4.2-5.4); White Blood Count 8.8 K/mm3 (4.5-10.0)
[2022-08-02 00:36] LABS: Alanine Aminotransferase 18 U/L (6-35); Albumin Level 3.9 g/dL (3.5-5.1); Alkaline Phosphatase 104 U/L (38-126); Anion Gap 4 mmol/L (8-16); Aspartate Amino Transferase 21 U/L (14-36); Bilirubin,Total 1.1 mg/dL (0.2-1.3); Blood Urea Nitrogen 18 mg/dL (7-17); Carbon Dioxide 33 mmol/L (22-30); Chloride 102 mmol/L (98-107); Estimated Glomerular Filt Rate > 60; Glucose 132 mg/dL (65-110); Magnesium 1.8 mg/dL (1.6-2.3); Potassium 3.7 mmol/L (3.4-5.0); Sodium 139 mmol/L (137-145)
[2022-08-02] MEDS: SODIUM CHLORIDE 0.9% IV 1,000 ML 500 ML IV CONT (00:36)
[2022-08-02 00:37] LABS: Lactic Acid Reflex 0.9 mmol/L (0.7-2.0)
[2022-08-02 00:48] LABS: Troponin I < 0.012 ng/mL (0.000-0.034)
--- NOTE | 2022-08-02 01:13 | PC.NURSE ---
Patient wants to try bedpan before staff attempts to use a straight catheter for a urine specimen.
[2022-08-02 02:15] LABS: Appearance Urine Clear (Clear); Bacteria Urine None Seen /hpf; Bilirubin Urine 1+ (Negative); Blood Urine Negative (Negative); Color Urine Dark Yellow (Yellow); Glucose Urine UA Negative (Negative); Ketones Urine 1+ mg/dL (Negative); Leukocyte Esterase Ur Trace LEU/UL (Negative); Nitrate Urine Negative (Negative); Protein Urine 1+ mg/dL (Negative); Specific Grav Ur 1.023 (1.001-1.035); Squamous Epithelial Cell Urine Occasional /hpf (Few); WBC Urine 0-5 /hpf
[2022-08-02 02:24] LABS: Add Urine Microscopic? YES
[2022-08-02 02:44] LABS: Procalcitonin 0.1 ng/mL
--- NOTE | 2022-08-02 02:51 | PC.NURSE ---
Called [facility] [place] who stated that patient was getting more confused over the past few months due to UTIs.
--- NOTE | 2022-08-02 03:26 | ED.GENADULT ---
HPI - General Adult General Chief complaint: Altered Mental Status Stated complaint: ams Time Seen by Provider: 08/01/22 23:51 History of Present Illness HPI narrative: Patient 77-year-old female who presents the emergency department with chief complaint of altered mental status. Patient is a resident of [facility] and is on the assisted living side per the facility the patient has been progressively declining and is had several urinary tract infections and most recently discharged from the hospital the end of last month the patient has been having a difficult time caring for herself in the independent side and the facility decided to call 911 today that the patient transported to the emergency department as they were concerned that she may have another urinary tract infection. Related Data Home Medications Medication Instructions Recorded Confirmed ondansetron HCl 4 mg tablet 4 mg PO Q8H PRN Nausea 06/19/22 07/17/22 Allergies Allergy/AdvReac Type Severity Reaction Status Date / Time No Known Allergies Allergy Verified 07/17/22 13:16 Review of Systems Review of Systems: A 10 system review of systems was completed on the patient and is negative except for what is stated in the HPI. Nursing and ancillary documentation was reviewed. FOR[facility]LY [facility], [facility] Past Medical History Medical History Anemia Anxiety Constipation Dementia Depression Essential hypertension Gastroesophageal reflux disease Hallucinations Osteopenia Poor balance Pubic ramus fracture Schatzki's ring of distal esophagus Shingles Vitamin D deficiency Wandering behavior Surgical History Surgical History History of arthroplasty of right knee History of bladder suspension procedure History of hysterectomy History of lateral meniscus repair of left knee History of partial thyroidectomy Removal of goiter. History of tubal ligation Family History Family History Father Hypertension Heart disease Sibling Carcinoma of colon Lung cancer Other Diabetes mellitus Family history of Alzheimer's disease Family history of coronary artery disease Social History Social History Social History: Surrogate medical decision maker: Brooklyn Marroquin, daughter. Code status: Full code. Smoking status: Never smoker Second hand tobacco smoke exposure: Yes Alcohol intake: unknown Substance use: unknown Substance use type: unknown Lack of Transportation: No Lack of Food: Never True Current Housing: I Have Housing Concerned About Future Housing: No Difficulty Paying Gas/Electric Bills: No Difficulty Paying for Meds: No Currently Unemployed: No Education: Decline to Answer Difficulty w/ Childcare or Family Care: No Additional living arrangements comments: [facility] in [place]. Additional occupation/education comments: Retired [employer]. Spiritual care concerns: No Exam Narrative: GENERAL: Well-appearing, well-nourished, and in no acute distress. HEAD: Normocephalic, atraumatic. EYES: PERRLA and EOMI. ENT: Nares clear, no rhinorrhea or epistaxis. Mucous membranes moist. NECK: Supple. CHEST: Clear to auscultation. No respiratory distress. HEART: Regular rate and rhythm. No murmur heard. Normal peripheral pulses. ABDOMEN: Soft, nontender, nondistended, normal active bowel sounds. EXTREMITIES: Normal range of motion. No edema. SKIN: Warm, dry, no rash. NEURO: No focal deficits. Alert and pleasantly confused. PSYCH: Normal mood and affect. Course Vital Signs Vital signs: Vital Signs Temperature 36.6 C 08/01/22 23:51 Pulse Rate 69 08/01/22 23:51 Respiratory Rate 19 08/01/22 23:51 Blood Pressure 143/80 H 08/01/22 23:51 Temperature 36.6
--- NOTE | 2022-08-02 07:16 | ADMGEN ---
This patient, Cris Calabrese, was admitted to Medical Room 344-01. Patient/family oriented to hospital policies and general routines including ID bracelet, bed and alarms, visiting hours, pain management, procedures, bathroom and other care routines, personal items, smoking policy, room service/diet, and visiting hours. Information on how to activate the Rapid Response Team has been discussed. Patient/Family are encouraged to report perceived risks to care and to ask questions if they do not understand what they are told or what they should do.
[2022-08-02] MEDS: PANTOPRAZOLE 40 MG TABLET PO (08:56)
[2022-08-02] MEDS: METOPROLOL SUCCINATE EXT REL 50 MG TABCR PO (08:56)
[2022-08-02] MEDS: SENNA/DOCUSATE SODIUM TABLET 1 TAB PO ×2 (08:57→17:20)
--- NOTE | 2022-08-02 09:15 | PM.IMHP ---
H&P: HPI History of Present Illness Date/Time: 08/02/22 09:15 Chief Complaint: Unable to care for herself per her assisted living facility Narrative: History was obtained by talking to her daughter, Brooklyn Marroquin, and by reviewing the chart. Patient was unable to provide a coherent history. Patient was sent to the emergency department because of inability to care for herself. She has had multiple falls more recently daily. Assisted living staff at [facility] in [place] became alarmed at her progressive decline and center to the emergency department for evaluation. She was recently discharged from [facility] July 13 after treatment for supposed urinary infection. Culture in [place] reportedly grew E coli. Culture at [place] was negative. Patient improved after treatment of the urinary infection but not significantly. She continued to decline after transfer back to the assisted living facility. She has become more weak. Gait is more unsteady. Over the last 3 weeks she is incontinent of urine more often and occasionally incontinent of stool. She is falling more frequently and is more confused. She hallucinates and sometimes talks ?and coherently ?. More recently she has had trouble chewing and swallowing intermittently. The facility was concerned about a possible stroke. Her family is noted about 10 years of word-finding problems and memory difficulty. These worsened about a year and a half ago and a little over a year ago she was admitted to the assisted living facility. There is no prior history of stroke or head trauma. No prior history drug or alcohol or tobacco abuse. Her functional and cognitive decline seem to accelerate after a pelvic fracture caused by a fall from standing height in April of 2022. MRI of the brain performed in [place] in June of 2022 was negative for stroke tumor or bleed. She did have significant volume loss. CT of the brain here in June and again at this admission showed the same. Patient has a long history of depression. She has been on duloxetine for some time. The daughter was uncertain as to the length of time on that particular medication. During her recent hospitalization risperidone 0.25 mg at night was added in an attempt to suppress hallucinations. Review of Systems Review of Systems: ROS unobtainable: Yes unobtainable due to medical condition PMFSH Past Medical History Medical History Anemia Anxiety Constipation Dementia Depression Essential hypertension Gastroesophageal reflux disease Hallucinations Osteopenia Poor balance Pubic ramus fracture Schatzki's ring of distal esophagus Shingles Vitamin D deficiency Wandering behavior Surgical History Surgical History History of arthroplasty of right knee History of bladder suspension procedure History of hysterectomy History of lateral meniscus repair of left knee History of partial thyroidectomy Removal of goiter. History of tubal ligation Family History Family History Father Hypertension Heart disease Sibling Carcinoma of colon Lung cancer Other Diabetes mellitus Family history of Alzheimer's disease Family history of coronary artery disease Social History Social History Social History: Surrogate medical decision maker: Brooklyn Marroquin, daughter. Code status: Full code. Smoking status: Never smoker Second hand tobacco smoke exposure: Yes Alcohol intake: former Substance use: never Substance use type: unknown Lack of Transportation: No Lack of Food: Never True Current Housing: I Have Housing Concerned About Future Housing: No Difficulty Paying Gas/Electric Bills: No Difficulty Paying for Meds: No Currently Unemployed: No Education: Decl
[2022-08-02 10:12] LABS: CRP 2.3 mg/dL (<1.0)
[2022-08-02 10:27] LABS: Vitamin D 25 Hydroxy 21.6 ng/mL
[2022-08-02] MEDS: ENOXAPARIN 40 MG/0.4 ML SYRINGE SUB-Q (11:24)
[2022-08-02 11:26] LABS: Folic Acid 8.4 ng/mL (2.76->20)
--- NOTE | 2022-08-02 11:32 | WPDNEURCNPN ---
Assessment and Plan Assessment and plan (1) Dementia: Qualifiers: Dementia behavioral or psychological symptom: with psychotic disturbance Dementia severity: severe Dementia type: unspecified type Qualified Code(s): F03.C2 - Unspecified dementia, severe, with psychotic disturbance Code(s): F03.90 - Unspecified dementia, unspecified severity, without behavioral disturbance, psychotic disturbance, mood disturbance, and anxiety Status: Acute (2) Hallucinations: Code(s): R44.3 - Hallucinations, unspecified Status: Acute (3) Wandering behavior: Code(s): R46.89 - Other symptoms and signs involving appearance and behavior Status: Acute (4) History of recurrent UTI (urinary tract infection): Code(s): Z87.440 - Personal history of urinary (tract) infections Status: Acute Plan Cris Calabrese is a 77 year old female with anxiety, depression, and major cognitive impairment presenting due to acute on chronic deterioration of mental status. Family reports decade long history of memory issues. Imaging shows parenchymal volume loss. Chronic decline in mental status seems to be related to dementia, with acute declines due to recent illness. Work-up during this admission is positive for borderline vitamin B12 levels. I don't think this is the only cause of her long standing memory impairment but still would be worth treating. Seems like she also needs higher level of care than her current living situation. - Will check TSH - Recommend B12 supplementation - Can start Aricept 5mg qhs x 2 weeks, then increase to 10mg qhs. Consult date: 08/02/22 Reason for consult: Altered mental status, dementia HPI: Cris Calabrese is a 77 year old female with anxiety, depression, and major cognitive impairment presenting due to acute on chronic deterioration of mental status. Patient resides at an assisted living center in [facility]. She was sent to the Emergency Department due to inability to care for herself. She has also had multiple falls more recently. She has a history of recurrent UTI and was recently admitted in the End of June. However, after she was discharged, she began to decline further and became more weak with unsteady gait. In the last three weeks she has been incontinent of urine and stool. She has been falling more frequently, and been having hallucinations and speaking incoherently. She also has had intermittent difficulty with chewing and swallowing. Family reports that patient has been having ongoing issues with memory and language for the past decade, however worsening over the past year which was when she was transitioned to an assisted living center. MRI of the brain performed in [place] in June of 2022 was negative for stroke tumor or bleed, but did show significant volume loss. She was recently started on risperidone 0.25mg qhs for the hallucinations. CT head form this admission also shows moderate volume loss. Labs from this admission show normal folate level. B12 is borderline low at 274. I do not see a recent TSH -- last done in July 2021 and was normal at that time. Her urinalysis is not suggestive of UTI. Patient was able to deny any numbness or tingling in her legs. Review of Systems Constitutional: Constitutional: Reports weakness Eyes: Eyes: Reports no additional eye complaints ENT: Reports system reviewed and no additional complaints, except as documented Cardiovascular: Cardiovascular: Reports no additional cardiovascular complaints Respiratory: Respiratory: Reports no additional respiratory complaints Gastrointestinal: Comments: incontinence Genitourinary: Genitourinary: Reports urinary incontinence Musculoskeletal: Musculoskeletal: Reports no additional musculoskeletal complaints Integumentary/Breasts: Skin/Breast: Reports system reviewed and no additional complaints, except as docu Neurologic: Reports as per HPI and Reports confusion Psychiatric: Ps
--- NOTE | 2022-08-02 12:58 | PCSTNOTE ---
Consulted with nurse to request change order for Modified Barium Swallow Study (MBSS) to bedside swallowing evaluation. Left message with Dr. Giles.
--- NOTE | 2022-08-02 14:16 | PCSTNOTE ---
Patient seen for bedside swallowing evaluation. Positioned upright in bed. Attempted oral peripheral examination, patient has difficulty following instructions. Oral mechanism appears to be within functional limits structurally and functionally. Speech is intelligible. Trials of thin liquid by spoon, cup, and straw were given. No signs of aspiration or penetration. Trials of pureed food given by spoon, swallowing of pureed food wfl. Piece of fiordaliza cracker presented and patient was able to chew without difficulty but oral residue was present after swallowing, presumably due to dry texture of bolus. Recommendations: thin liquids and soft/bite sized diet texture (level 6). Swallowing precaution recommendations placed in chart. No further speech therapy is recommended for this patient. Please note that silent aspiration cannot be ruled out at bedside. However, based on bedside swallowing evaluation results there are no signs of aspiration. No further speech therapy is recommended. Thank you for the referral of this patient.
[2022-08-03 04:14] VITALS: BP 140/75; PULSE 70; RESP 16; TEMP 36.6; O2SAT 97
[2022-08-03 09:27] VITALS: PULSE 86
[2022-08-03] MEDS: SENNA/DOCUSATE SODIUM TABLET 1 TAB PO (09:27)
[2022-08-03] MEDS: CYANOCOBALAMIN 1,000 MCG TABLET 1000 MCG PO (09:27)
[2022-08-03] MEDS: PANTOPRAZOLE 40 MG TABLET PO (09:27)
[2022-08-03] MEDS: METOPROLOL SUCCINATE EXT REL 50 MG TABCR PO (09:27)
[2022-08-03] MEDS: ENOXAPARIN 40 MG/0.4 ML SYRINGE SUB-Q (09:37)
[2022-08-03] MEDS: CYANOCOBALAMIN INJ 1,000 MCG/ML VIAL 1000 MCG IM (09:37)
--- NOTE | 2022-08-03 10:25 | PC.NURSE ---
While assessing patient marketing copywriter noticed patient was not able to follow commands. Patient unable to follow commands to swallow pills. Sap Senior Developer crushed pills and put them in pudding to see if patient would swallow them that way. Patient took one bite and then spit it out.
--- NOTE | 2022-08-03 11:12 | P.PNIM_ITS ---
Progress Note: A&P Assessment and Plan (1) Dementia: Qualifiers: Dementia type: unspecified type Dementia severity: severe Dementia behavioral or psychological symptom: with psychotic disturbance Qualified Code(s): F03.C2 - Unspecified dementia, severe, with psychotic disturbance Code(s): F03.90 - Unspecified dementia, unspecified severity, without behavioral disturbance, psychotic disturbance, mood disturbance, and anxiety Status: Acute Assessment and Plan: * This is the most likely cause of her gradual 10 year declining cognition with recent more rapid decline in functional and cognitive abilities associated with increased confusion and visual hallucinations. * At this time there is no sign of infection either acute or chronic nor of intracranial mass bleed or stroke. * Brain imaging is consistent with age-related volume loss. * Recent TSH was NL. * B12 below 300, so replacement initiated 08/03/2022 * CRP NL * Withhold psychoactive drugs (duloxetine, risperidone) * Neuro consult noted (has outpatient appt in August) * Care coordination consult, re: placement in memory care * 08/03/2022 initiated donepezil 5 mg po q hs * 08/03/2022 discussed with daughter, [place], and she would like to speak to hospice (2) Depression with anxiety: Code(s): F41.8 - Other specified anxiety disorders Status: Acute Assessment and Plan: * Hold psychoactive drugs at this time (3) Gastroesophageal reflux disease: Qualifiers: Esophagitis presence: with esophagitis Esophagitis bleeding: without hemorrhage Qualified Code(s): K21.00 - Gastro-esophageal reflux disease with esophagitis, without bleeding Code(s): K21.9 - Gastro-esophageal reflux disease without esophagitis Status: Acute Assessment and Plan: * Continue pantoprazole (4) Vitamin D deficiency: Code(s): E55.9 - Vitamin D deficiency, unspecified Status: Acute Assessment and Plan: * Low, but not deficient at 21.6 * 08/03/22 added supplement (5) Dysphagia: Qualifiers: Dysphagia type: unspecified Qualified Code(s): R13.10 - Dysphagia, unspecified Code(s): R13.10 - Dysphagia, unspecified Status: Acute Assessment and Plan: * Suspect related to dementia * Swallowing evaluation at bedside by ST negative for deglutition issues (6) Multinodular goiter: Code(s): E04.2 - Nontoxic multinodular goiter Status: Acute Assessment and Plan: * Evaluated in past with u/s, nuclear scans, FNA (benign), and serial thyroid labs * TSH NL at this admission (7) Essential hypertension: Code(s): I10 - Essential (primary) hypertension Status: Acute Assessment and Plan: * Continue metoprolol Subjective Date/time seen: 08/03/22 11:12 Interval history: Admitted 08/02/22. F/u confusion, falls. I feel terrible. Poor appetite. Thinks she is in a hotel. I just want to go home. Review of Systems Review of Systems: ROS unobtainable: Yes unobtainable due to medical condition Exam 2 Narrative: HEENT: EOMI, PERRL, sclerae nonicteric, pharyngeal mucosa pink and intact NECK: No JVD CHEST: Clear to auscultation. Normal effort. HEART: NL S1/S2, regular, no murmur ABDOMEN: BS+, soft, nontender, no mass, no bruits EXTREMITIES: No cyanosis, edema, or clubbing. NEUROLOGIC: CN intact and symmetric to inspection No tremors or rigidity. Gait not tested. MUSCULOSKELETAL: Tone and strength symmetric. PSYCH: Alert. Oriented to
--- NOTE | 2022-08-03 11:12 | PM.IMPN ---
Progress Note: A&P Assessment and Plan (1) Dementia: Qualifiers: Dementia type: unspecified type Dementia severity: severe Dementia behavioral or psychological symptom: with psychotic disturbance Qualified Code(s): F03.C2 - Unspecified dementia, severe, with psychotic disturbance Code(s): F03.90 - Unspecified dementia, unspecified severity, without behavioral disturbance, psychotic disturbance, mood disturbance, and anxiety Status: Acute Assessment and Plan: This is the most likely cause of her gradual 10 year declining cognition with recent more rapid decline in functional and cognitive abilities associated with increased confusion and visual hallucinations. At this time there is no sign of infection either acute or chronic nor of intracranial mass bleed or stroke. Brain imaging is consistent with age-related volume loss. Recent TSH was NL. B12 below 300, so replacement initiated 08/03/2022 CRP NL Withhold psychoactive drugs (duloxetine, risperidone) Neuro consult noted (has outpatient appt in August) Care coordination consult, re: placement in memory care 08/03/2022 initiated donepezil 5 mg po q hs 08/03/2022 discussed with daughter, [place], and she would like to speak to hospice (2) Depression with anxiety: Code(s): F41.8 - Other specified anxiety disorders Status: Acute Assessment and Plan: Hold psychoactive drugs at this time (3) Gastroesophageal reflux disease: Qualifiers: Esophagitis presence: with esophagitis Esophagitis bleeding: without hemorrhage Qualified Code(s): K21.00 - Gastro-esophageal reflux disease with esophagitis, without bleeding Code(s): K21.9 - Gastro-esophageal reflux disease without esophagitis Status: Acute Assessment and Plan: Continue pantoprazole (4) Vitamin D deficiency: Code(s): E55.9 - Vitamin D deficiency, unspecified Status: Acute Assessment and Plan: Low, but not deficient at 21.6 08/03/22 added supplement (5) Dysphagia: Qualifiers: Dysphagia type: unspecified Qualified Code(s): R13.10 - Dysphagia, unspecified Code(s): R13.10 - Dysphagia, unspecified Status: Acute Assessment and Plan: Suspect related to dementia Swallowing evaluation at bedside by ST negative for deglutition issues (6) Multinodular goiter: Code(s): E04.2 - Nontoxic multinodular goiter Status: Acute Assessment and Plan: Evaluated in past with u/s, nuclear scans, FNA (benign), and serial thyroid labs TSH NL at this admission (7) Essential hypertension: Code(s): I10 - Essential (primary) hypertension Status: Acute Assessment and Plan: Continue metoprolol Subjective Date/time seen: 08/03/22 11:12 Interval history: Admitted 08/02/22. F/u confusion, falls. I feel terrible. Poor appetite. Thinks she is in a hotel. I just want to go home. Review of Systems Review of Systems: ROS unobtainable: Yes unobtainable due to medical condition Exam Narrative: HEENT: EOMI, PERRL, sclerae nonicteric, pharyngeal mucosa pink and intact NECK: No JVD CHEST: Clear to auscultation. Normal effort. HEART: NL S1/S2, regular, no murmur ABDOMEN: BS+, soft, nontender, no mass, no bruits EXTREMITIES: No cyanosis, edema, or clubbing. NEUROLOGIC: CN intact and symmetric to inspection No tremors or rigidity. Gait not tested. MUSCULOSKELETAL: Tone and strength symmetric. PSYCH: Alert. Oriented to person only. Thought she was in a hotel and the year was 1020 . Objective Data Vital Signs Vital Signs: Vital Signs - 24 hr 08/02/22 14:00 08/02/22 20:42 08/03/22 04:14 Temperature 98.1 F 98 F 97.9 F Pulse Rate 74 80 70 Respiratory Rate 20 18 16 Blood Pressure 156/88 H 152/89 H 140/75 Pulse Oximetry 98 97 97 Oxygen Delivery 08/03/22 08:49 08/03/22 09:27 08/03/22 09:27 Temperature Pulse Rate 86 Respiratory Rate
--- NOTE | 2022-08-03 13:48 | PCOTNOTE ---
Attempted OT evaluation this date; pt. unable to follow commands to complete evaluation at this time. Spoke with Dr. Giles and OT will be discharged at this time.
[2022-08-03 14:00] VITALS: BP 153/96; PULSE 94; RESP 18; TEMP 37.1; O2SAT 96
--- NOTE | 2022-08-03 15:02 | PC.NURSE ---
Patient has not eaten any meals. When helping with feedings patient will not take food, will not open mouth for food, and will not take any medications. Patient keeps stating I am trapped in a car and I cannot get out
[2022-08-03 20:15] VITALS: BP 143/77; PULSE 64; RESP 20; TEMP 36.6; O2SAT 97
[2022-08-04 05:42] VITALS: BP 144/68; PULSE 77; RESP 20; TEMP 36.6; O2SAT 96
--- NOTE | 2022-08-04 08:38 | PC.NURSE ---
Patient not verbally responding at this time. Will not follow commands. Will not open mouth to take medications, eat, drink, swallow.
[2022-08-04] MEDS: ENOXAPARIN 40 MG/0.4 ML SYRINGE SUB-Q (08:42)
--- NOTE | 2022-08-04 11:42 | P.PNNEUR_ITS ---
Subjective Date/time seen: 08/04/22 11:42 Interval history: 77 years old lady has been admitted to [facility] for the ongoing diagnosis of dementia with hallucinations and wandering behavior in addition to the recurrent UTI was seen initially by Dr. Patterson and documented with long-term history of memory issues along with the volume loss on the MRI and chronic decline in the mental status as she was admitted for the acute changes repeat investigations were done routine routine labs revealed no significant abnormalities and CT scan of the head documented no epidural bleed or space- occupying lesion chest x-ray is negative also the urine culture is negative she is receiving risperidone 0.25 mg daily in addition to duloxetine 60 mg daily. Neurological status is unchanged she had low B12 for which the replacement has been initiated the psychotropic medications have been withheld including duloxetine and risperidone patient is to be placed on the hospice as per the discussion with the daughter by Dr. Giles and patient can be discharged Objective Data Vital Signs Vital Signs: Vital Signs - 24 hr 08/03/22 14:00 08/03/22 20:15 08/03/22 20:00 Temperature 37.1 C 36.6 C Pulse Rate 94 64 Respiratory Rate 18 20 Blood Pressure 153/96 H 143/77 H Pulse Oximetry 96 97 Oxygen Delivery Room Air 08/04/22 05:42 08/04/22 11:15 Temperature 36.6 C Pulse Rate 77 Respiratory Rate 20 Blood Pressure 144/68 H Pulse Oximetry 96 Oxygen Delivery Room Air Intake/Output Intake/Output: Intake & Output 08/01/22 08/02/22 08/03/22 08/04/22 23:59 23:59 23:59 23:59 Intake Total 1550 490 0 Balance 1550 490 0 Meds/Results Medications: Active Medications Generic Name Dose Route Start Last Admin Trade Name Freq PRN Reason Stop Dose Admin Acetaminophen 500 mg 08/02/22 08:13 Acetaminophen 500 Mg Tablet PO Q6H PRN pain Cyanocobalamin 1,000 mcg 08/03/22 09:00 08/04/22 08:40 Cyanocobalamin 1,000 Mcg Tablet PO Not Given QAM SAMEERA Donepezil HCl 5 mg 08/03/22 21:00 08/03/22 22:32 Donepezil Hcl 5 Mg Tablet PO Not Given HS SAMEERA Enoxaparin Sodium 40 mg 08/02/22 09:45 08/04/22 08:42 Enoxaparin 40 Mg/0.4 Ml Syringe SUB-Q 40 mg DAILY [facility] Administration Metoprolol Succinate 50 mg 08/02/22 09:00 08/04/22 08:40 Metoprolol Succinate Ext Rel 50 Mg Tabcr PO Not Given DAILY [facility] Pantoprazole Sodium 40 mg 08/02/22 09:00 08/04/22 08:40 Pantoprazole 40 Mg Tablet PO Not Given [facility]AM [facility] Senna/Docusate Sodium 1 tab 08/02/22 09:00 08/04/22 08:40 Senna/Docusate Sodium Tablet PO Not Given BID [facility] Vitamin D 200 units 08/03/22 11:55 08/04/22 08:40 Cholecalciferol 200 Units Tablet PO Not Given QAM [facility] Radiology Results: ITS Impressions Head CT 08/02/22 08:27 IMPRESSION: 1. No acute intracranial abnormality. Chest X-Ray 08/02/22 08:31 Impression: 1: No acute cardiopulmonary disease. [facility]up [facility]illing [facility] Follow-up Hospital Follow-up: [id number] [facility]
--- NOTE | 2022-08-04 11:48 | PM.DS ---
DS: Admitting Diagnosis Discharge Date 08/04/2022 Admitting Diagnosis Altered mental status DS: Discharge Diagnosis Discharge Diagnosis (1) Dementia: Qualifiers: Dementia type: unspecified type Dementia severity: severe Dementia behavioral or psychological symptom: with psychotic disturbance Qualified Code(s): F03.C2 - Unspecified dementia, severe, with psychotic disturbance Code(s): F03.90 - Unspecified dementia, unspecified severity, without behavioral disturbance, psychotic disturbance, mood disturbance, and anxiety Status: Acute Assessment and Plan: This is the most likely cause of her gradual 10 year declining cognition with recent more rapid decline in functional and cognitive abilities associated with increased confusion and visual hallucinations. No evidence of infection either acute or chronic nor of intracranial mass bleed or stroke. Brain imaging is consistent with age-related volume loss. Recent TSH was WNL. B12 below 300, so replacement initiated 08/03/2022. Continue on discharge Evaluated by Neurology during admission Started on Aricept 5 mg q.h.s. Patient discharge to memory care with hospice (2) Depression with anxiety: Code(s): F41.8 - Other specified anxiety disorders Status: Acute Assessment and Plan: Chronic (3) Gastroesophageal reflux disease: Qualifiers: Esophagitis presence: with esophagitis Esophagitis bleeding: without hemorrhage Qualified Code(s): K21.00 - Gastro-esophageal reflux disease with esophagitis, without bleeding Code(s): K21.9 - Gastro-esophageal reflux disease without esophagitis Status: Acute Assessment and Plan: Continue pantoprazole (4) Vitamin D deficiency: Code(s): E55.9 - Vitamin D deficiency, unspecified Status: Acute Assessment and Plan: Low, but not deficient at 21.6 (5) Dysphagia: Qualifiers: Dysphagia type: unspecified Qualified Code(s): R13.10 - Dysphagia, unspecified Code(s): R13.10 - Dysphagia, unspecified Status: Acute Assessment and Plan: Suspect related to dementia Swallowing evaluation at bedside by ST negative for deglutition issues (6) Multinodular goiter: Code(s): E04.2 - Nontoxic multinodular goiter Status: Acute Assessment and Plan: Evaluated in past with u/s, nuclear scans, FNA (benign), and serial thyroid labs TSH NL at this admission (7) Essential hypertension: Code(s): I10 - Essential (primary) hypertension Status: Acute Assessment and Plan: Continue metoprolol DS: Summary Hospital Course Hospital Course: Date of admission: 08/02/2022 Date of discharge: 08/04/2022 Cris Calabrese is a 77-year-old female with a history of dementia with hallucinations, hypertension, GERD, anemia who presented to the emergency department on 08/02/2022 due to progressive decline and difficulty caring for herself. On presentation, her vital signs were stable and laboratory workup was relatively unremarkable. She was admitted to the hospitalist service for further evaluation and management. Please see above for further details. She was seen in consultation by Neurology during admission. Started on B12 supplementation and Aricept which she will continue as an outpatient. Memory care was arranged and patient and family met with [facility]. Consents signed and patient discharged to memory care facility with hospice on 08/04/2022. Time Spent with Patient Time attestation: Total time spent providing and/or coordinating discharge services: 35 minutes Time spent: Greater than 30 minutes Exam Narrative: GEN: Frail, chronically ill-appearing NEURO: Asleep, did not attempt to arouse HEENT: Normocephalic, atraumatic RESP: Clear to auscultation anteriorly. Normal effort. HEART: NL S1/S2, regular, no murmur ABDOMEN: BS+, soft, nontender EXTREM
[2022-08-07 20:32] LABS: Treponema pallidum Ab FTA ABS Nonreactive (Nonreactive)
== END 2022-08-04 13:45 | disposition hospice, home (50) ==
LOC: ANHED 08-02 05:19 → ANH3MED 08-04 06:52
PROVIDERS: Admitting Provider Internal Medicine; Emergency Provider Emergency Medicine; PCP Nurse Practitioner Family; Visit Provider Physician Assistant
DX: F03.C2 Unspecified dementia, severe, with psychotic disturbance (principal); F41.8 Other specified anxiety disorders; K21.9 Gastro-esophageal reflux disease without esophagitis; E55.9 Vitamin D deficiency, unspecified; R13.10 Dysphagia, unspecified; E04.2 Nontoxic multinodular goiter; I10 Essential (primary) hypertension; R44.3 Hallucinations, unspecified; R41.82 Altered mental status, unspecified; D64.9 Anemia, unspecified; R26.81 Unsteadiness on feet; Z91.83 Wandering in diseases classified elsewhere; R29.6 Repeated falls; R53.1 Weakness; R32 Unspecified urinary incontinence; R15.9 Full incontinence of feces; R63.30 Feeding difficulties, unspecified; R00.1 Bradycardia, unspecified; I45.2 Bifascicular block; Z87.81 Personal history of (healed) traumatic fracture; Z87.440 Personal history of urinary (tract) infections; Z79.1 Long term (current) use of non-steroidal anti-inflammatories (NSAID); Z79.899 Other long term (current) drug therapy; Z82.49 Family history of ischemic heart disease and other diseases of the circulatory system
CPT/HCPCS: 36415; 70450; 71045; 80053; 81001; 82306; 82607; 82746; 83605; 83735; 84145; 84484; 85025; 86140; 86780; 92610; 93005; 96360; 96361; 96372; 97161; 99285; A9270; G0378; J1650; J3420; J7030